=== PATIENT | male | born 1955 | race Caucasian/White ===

== ENCOUNTER → 2017-01-04 | Outpatient (CLI) | payer BC ==
[~2017-01-04] MED LIST: ACET-1311 PO
== END | disposition home or self-care (01) ==
LOC: C.RDSM 12:09
PROVIDERS: ATTEND Family Medicine Sports Medicine
DX: M25.561 Pain in right knee (principal)

== ENCOUNTER → 2017-02-10 | Outpatient (CLI) | payer BC ==
--- NOTE | 2017-02-10 15:30 | DIAGNOSTIC IMAGING REPORT ---
RIGHT LOWER EXT JOINT WITHOUT CLINICAL HISTORY: M71.21 Right pain TECHNIQUE: Multiaxial MRI acquisition COMPARISON STUDY: None FINDINGS: Somewhat compromised exam due to moderate patient motion. Signal characteristics the osseous structures are unremarkable. No significant bone marrow replacing process. No significant popliteal cyst. Several venous varicosities. Evaluation of menisci shows a focal linear tear inferior surface posterior horn medial meniscus. Anterior horn is unremarkable. Lateral meniscus is within normal limits. Cruciate ligaments are intact. Mild degenerative thinning of the patellar articulating surface. The collateral ligaments are intact. IMPRESSION: 1. Focal linear tear posterior horn medial meniscus extending to the inferior meniscal surface. 2. Minimal degenerative changes of the articular services of all major joint compartments. 3. Study is otherwise unremarkable. The above report was generated using voice recognition software. It may contain grammatical, syntax or spelling errors. Electronically signed by: Torsten Tracy M.D. 02/10/2017 3:29 PM Dictated Date/Time: 02/10/2017 3:24 PM
== END | disposition home or self-care (01) ==
LOC: C.MRI 13:59
PROVIDERS: ATTEND Family Medicine Sports Medicine
DX: M71.21 Synovial cyst of popliteal space [Baker], right knee (principal); S83.241A Other tear of medial meniscus, current injury, right knee, initial encounter; M89.8X6 Other specified disorders of bone, lower leg; X58.XXXA Exposure to other specified factors, initial encounter

== ENCOUNTER → 2017-02-17 | Outpatient (CLI) | payer BC | END | disposition home or self-care (01) | LOC: C.RDSM 10:50 | PROVIDERS: ATTEND Orthopaedic Surgery | DX: M25.561 Pain in right knee (principal) ==

== ENCOUNTER → 2017-02-22 | Outpatient (CLI) | payer BC ==
--- NOTE | 2017-02-22 08:33 | DIAGNOSTIC IMAGING REPORT ---
CT SCAN OF THE CHEST WITHOUT IV CONTRAST CLINICAL HISTORY: Follow-up pulmonary nodules. COMPARISON STUDY: Chest CT scans dated 02/26/2016 and 09/10/2015. TECHNIQUE: CT scan of the thorax was performed from the thoracic inlet to the upper abdomen. Images are reviewed in the axial, sagittal, and coronal planes. IV contrast was not administered for this examination as per the referring clinician. A dose lowering technique was utilized adhering to the principles of ALARA. CT DOSE: 342.20 mGycm FINDINGS: Thyroid: Imaged portions of the thyroid gland are normal in size and attenuation. Thoracic aorta: The thoracic aorta is normal in caliber and demonstrates standard 3-vessel arch anatomy. Heart: The heart is normal in size and without pericardial effusion. Lungs and pleural spaces: There is a tiny fat-containing Bochdalek hernia at the right lung base. No airspace consolidation or pleural effusion is identified the trachea and central airways are clear. There is a 7 mm right lower lobe nodule seen on axial image #211. A 5 mm left upper lobe nodule is seen image #156. These are unchanged from 09/10/2015. No new pulmonary nodules are identified. Mediastinum: There is no mediastinal lymphadenopathy. Sara: Not well assessed without IV contrast. Axillae: There is no axillary lymphadenopathy. Upper abdomen: There is a 1.4 cm cyst in the left hepatic lobe. A tiny hiatal hernia is identified.. Skeletal structures: A benign-appearing lucent lesion in the right posterior seventh rib measuring 1.8 cm is unchanged from prior studies. No lytic or blastic bony lesions are seen. IMPRESSION: 1. There is no airspace consolidation or pleural effusion. 2. Unchanged appearance of 2 pathologically indeterminant pulmonary nodules measuring up to 7 mm dating back to 09/10/2015. No new pulmonary nodule is identified. Continued follow-up is recommended. See below. Please refer to below summary of Fleischner criteria recommendations for follow-up of incidental CT nodules (Aleida Motley, Guidelines for management of small pulmonary nodules detected on CT scans: A statement from the Fleischner Society, Radiology 237: [phone].) SOLID NODULES Solitary nodule size: <6 mm * low risk patients: no follow-up needed * high risk patients: optional CT at 12 months Solitary nodule size: 6-8 mm * low risk patients: follow-up at 6-12 months, then consider further follow-up at 18-24 months * high risk patients: initial follow-up CT at 6-12 months and then at 18-24 months if no change Solitary nodule size: >8 mm * either low or high risk patients - consider follow-up CT at 3 months, and/or CT-PET, and/or biopsy Multiple nodules size: <6 mm * low risk patients: no routine follow-up * high risk patients: optional CT at 12 months Multiple nodules size: 6-8 mm * low risk patients: follow-up at 3-6 months, then consider further follow-up at 18-24 months * high risk patients: follow-up at 3-6 months, then at 18-24 months if no change Multiple nodules size: >8 mm * low risk patients: follow-up at 3-6 months, then consider further follow-up at 18-24 months * high risk patients: follow-up at 3-6 months, then at 18-24 months if no change Note: newly detected indeterminate nodule in persons 35 years of age or older. * low risk patients: minimal or absent history of smoking and/or other known risk factors * high risk patients: history of smoking or of other known risk factors (e.g. first degree relative with lung cancer, or exposure to asbestos, radon, uranium) * if a nodule up to 8 mm is partly solid or is ground glass further follow-up is required after 24 months to exclude possible slow growing adenocarcinoma (QUENTIN) SUBSOLID NODULES Solitary pure ground-glass nodule * nodule size <6 mm - no CT follow-up required * nodule size >=6 mm - follow-up CT at 6-12 months, then every 2 years until 5 years Solitary part-solid nodule * nodule size <6 mm - no CT follow-up required * nodule size >=6 mm - follow-up CT at 3-6 months. If unchanged, and solid component remains <6 mm, then annual follow-up for 5 years Multiple subsolid nodules * nodule size <6 mm - follow-up CT at 3-6 months, consider further follow-up at 2 and 4 years if stable * nodule size >=6 mm - follow-up CT at 3-6 months, subsequent management based on the most suspicious nodule(s) Electronically signed by: Armando Angel M.D. 02/22/2017 8:31 AM Dictated Date/Time: 02/22/2017 8:21 AM
== END | disposition home or self-care (01) ==
LOC: C.CTS 08:03
PROVIDERS: ATTEND Physician Assistant
DX: R05 Cough (principal); R91.8 Other nonspecific abnormal finding of lung field

== ENCOUNTER 2017-03-22 19:06 | Emergency (ER) | payer BC ==
[~2017-03-22] VITALS: Ht 177.8 cm; Wt 93.0 kg
[~2017-03-22 19:06] MED LIST changes: -ATROPINE SULFATE 0.1 MG/ML 5ML SYR IV PRN; -CEFAZOLIN 2000MG IV PUSH 10 ML IV SCH; -DEXAMETHASONE SOD INJ 4 MG/ML VIAL ONE; -EpHEDrine SULFATE INJ 50 MG/ML AMP IV PRN; -EpHEDrine SULFATE INJ 50 MG/ML AMP ONE; -EpINEphrine HCL INJ 1 MG/ML 5ML SYRINGE ONE; -FENTANYL CITRATE INJ 50 MCG/1 ML 2 ML VIAL ONE; -IBUP-1451 PO; -KETOROLAC TROMETHAMINE 30 MG/ML VIAL ONE; -LIDO 2%/EPINEPHRINE 1:100000 20 ML VIAL INFIL ONE; -LIDOCAINE HCL 2% 2 ML VIAL (20MG/ML) ONE; -MIDAZOLAM HCL 1 MG/ML 2ML VIAL ONE; -MoRPHine SULFATE 2 MG/ML CARP IV PRN; -MoRPHine SULFATE 4 MG/ML 1 ML CARP\\VIAL IV PRN; -ONDANSETRON INJ 2 MG/ML 2 ML VIAL IV PRN; -ONDANSETRON INJ 2 MG/ML 2 ML VIAL ONE; -OXYCODONE/ACETAMINOPHEN 5-325 TAB PO PRN; -PROMETHAZINE HCL INJ 6.25 MG in SODIUM CHLORIDE 0.9% 50ML 50 ML IV PRN; -PROPOFOL IV EMULSION 10 MG/ML 20 ML VIAL IV ONE; -ROPIVACAINE 0.5% 5 MG/ML 30 ML VIAL ONE; -SODIUM CHLORIDE 0.9% 1000ML 1,000 ML IV SCH
[2017-03-22 19:11] VITALS: TEMP 36.9; Ht 177.8 cm; Wt 93.0 kg
[2017-03-22] MEDS ORDERED: SODIUM CHLORIDE 0.9% 1000ML 1,000 ML IV STA (19:22)
[2017-03-22] MEDS ORDERED: KETOROLAC TROMETHAMINE 30 MG/ML VIAL IV STA (19:22)
--- NOTE | 2017-03-22 19:31 | EMERGENCY ROOM VISIT NOTE ---
History Report prepared by Nydiaibkyler: Katelin Ring Under the Supervision of: Dr. Cain Leon M.D. First contact with patient: 19:07 Chief Complaint: HYPERTENSION Stated Complaint: HTN History of Present Illness The patient is a 61 year old male who presents to the Emergency Room with complaints of worsening hypertension that started 3 hours ago. He notes that he had surgery on his meniscus this morning. He states when he went in for a pre- assessment for his surgery, his doctor noticed his blood pressure was higher than normal. The patient states that he started to feel "odd" 3 hours ago and decided to check his BP. That is when he noticed his blood pressure was higher than it has ever been. He notes when he took his BP the first time it was 170/ 110. He states that he took it again and it was 180/115 which was alarming to him. The patient notes he has been experiencing chest pain near his right collarbone that lasted 1 minute. The patient denies having shortness of breath, nausea, vomiting, chills, or fever. He notes that his father from a heart attack at 59 y/o. The patient notes that since his meniscus surgery, he has been moving around fairly well. Source of History: patient Onset: 3 hours ago Position: other (HBP) Quality: other (HBP) Associated Symptoms: + chest pain, No fevers, No chills, No SOB, No nausea, No vomiting Review of Systems See HPI for pertinent positives and negatives. A total of ten systems were reviewed and were otherwise negative. Family History No pertinent family history Social History Smoking Status: Former Smoker Smokeless Tobacco Use: No Alcohol Use: occasionally Drug Use: none Current/Historical Medications Scheduled PRN Alprazolam (Xanax), 0.5 MG PO DAILY PRN for when flying Ibuprofen Tab (Motrin), 800 MG PO Q8H PRN for Pain Allergies Coded Allergies: No Known Allergies (Unverified , 03/22/17) Physical Exam Vital Signs Date Time Temp Pulse Resp B/P (MAP) Pulse Ox O2 Delivery O2 Flow Rate FiO2 03/22/17 22:25 80 18 141/87 100 03/22/17 21:39 82 18 140/90 100 Room Air 03/22/17 20:22 82 18 141/97 100 Room Air 03/22/17 19:30 Room Air 03/22/17 19:26 101 03/22/17 19:11 36.9 109 18 172/102 100 Room Air Physical Exam GENERAL: Awake, alert, well-appearing, in no distress HENT: Normocephalic, atraumatic. Oropharynx unremarkable. Dry mucus membranes. EYES: Normal conjunctiva. Sclera non-icteric. NECK: Supple. No nuchal rigidity. FROM. No JVD. RESPIRATORY: Clear to auscultation. CARDIAC: Sinus tachycardia. Extremities warm and well perfused. Pulses equal. ABDOMEN: Soft, non-distended. No tenderness to palpation. No rebound or guarding. No masses. RECTAL: Deferred. MUSCULOSKELETAL: Mild reproducible tenderness to right anterior chest wall. The back is symmetrical on inspection without obvious abnormality. There is no CVA tenderness to palpation. No joint edema. LOWER EXTREMITIES: Right knee wrapped with yoan wrap, no edema or tenderness. NEURO: Normal sensorium. No sensory or motor deficits noted. SKIN: No rash or jaundice noted. Medical Decision & Procedures ER Provider Diagnostic Interpretation: Radiology results as stated below per my review and radiologist interpretation: CHEST ONE VIEW PORTABLE CLINICAL HISTORY: Chest pain. Hypertension. COMPARISON STUDY: Chest CT February 22, 2017. FINDINGS: Lung volumes are normal. No pneumothorax or pleural effusion is present. There is no consolidation or evidence of pulmonary edema. A 6 mm right lower lobe pulmonary nodule is unchanged since exam of August 23, 2015. IMPRESSION: 1. No acute cardiopulmonary findings. 2. No change in a 6 mm right lower lobe nodule since exam of August 23, 2015. Electronically signed by: Bobby Grider M.D. 03/22/2017 7:58 PM Dictated Date/Time: 03/22/2017 7:57 PM Laboratory Results 03/22/17 19:28 Red Blood Count 4.65, Mean Corpuscular Volume 90.5, Mean Corpuscular Hemoglobin 32.9, Mean Corpuscular Hemoglobin Concent 36.3, Mean Platelet Volume 9.6, Neutrophils (%) (Auto) 84.8, Lymphocytes (%) (Auto) 7.9, Monocytes (%) (Auto) 7.1, Eosinophils (%) (Auto) 0.0, Basophils (%) (Auto) 0.0, Neutrophils # (Auto) 5.13, Lymphocytes # (Auto) 0.48, Monocytes # (Auto) 0.43, Eosinophils # (Auto) 0.00, Basophils # (Auto) 0.00 03/22/17 19:28 Test 03/22/17 19:28 03/22/17 21:15 White Blood Count 6.05 K/uL (4.8-10.8) Red Blood Count 4.65 M/uL (4.7-6.1) Hemoglobin 15.3 g/dL (14.0-18.0) Hematocrit 42.1 % (42-52) Mean Corpuscular Volume 90.5 fL (80-100) Mean Corpuscular Hemoglobin 32.9 pg (25-34) Mean Corpuscular Hemoglobin Concent 36.3 g/dl (32-36) Platelet Count 189 K/uL (130-400) Mean Platelet Volume 9.6 fL (7.4-10.4) Neutrophils (%) (Auto) 84.8 % Lymphocytes (%) (Auto) 7.9 % Monocytes (%) (Auto) 7.1 % Eosinophils (%) (Auto) 0.0 % Basophils (%) (Auto) 0.0 % Neutrophils # (Auto) 5.13 K/uL (1.4-6.5) Lymphocytes # (Auto) 0.48 K/uL (1.2-3.4) Monocytes # (Auto) 0.43 K/uL (0.11-0.59) Eosinophils # (Auto) 0.00 K/uL (0-0.5) Basophils # (Auto) 0.00 K/uL (0-0.2) RDW Standard Deviation 38.0 fL (36.4-46.3) RDW Coefficient of Variation 11.6 % (11.5-14.5) Immature Granulocyte % (Auto) 0.2 % Immature Granulocyte # (Auto) 0.01 K/uL (0.00-0.02) Anion Gap 7.0 mmol/L (3-11) Est Creatinine Clear Calc Drug Dose 101.0 ml/min Estimated GFR () 107.5 Estimated GFR (Non- 92.7 BUN/Creatinine Ratio 15.6 (10-20) Calcium Level 8.8 mg/dl (8.5-10.1) Total Bilirubin 1.5 mg/dl (0.2-1) Direct Bilirubin 0.3 mg/dl (0-0.2) Aspartate Amino Transf (AST/SGOT) 16 U/L (15-37) Alanine Aminotransferase (ALT/SGPT) 14 U/L (12-78) Alkaline Phosphatase 35 U/L (45-117) Total Protein 7.6 gm/dl (6.4-8.2) Albumin 3.8 gm/dl (3.4-5.0) Lipase 151 U/L (73-393) Troponin I < 0.015 ng/ml (0-0.045) Laboratory results reviewed by me Medications Administered Medications (Trade) Dose Ordered Sig/Andres Route Start Time Stop Time Status Last Admin Dose Admin Sodium Chloride 1,000 ml @ 999 mls/hr Q1H1M STAT IV 03/22/17 19:22 03/22/17 20:22 DC 03/22/17 19:34 999 MLS/HR Ketorolac Tromethamine (Toradol Inj) 30 mg NOW STAT IV 03/22/17 19:22 03/22/17 19:24 DC 03/22/17 19:34 30 MG ECG Indication: other (hypertension) Rate (beats per minute): 101 Rhythm: sinus tachycardia Findings: 1st degree AV block, LAFB, no acute ischemic change, left axis deviation Change: no significant change ED Course 1906: The patient was evaluated in room C7. A complete history and physical exam was performed. 1921: Toradol Inj 30 mg IV, Sodium Chloride 1000 ml @ 999 mls/hr IV. 2244: I reevaluated the patient. Discussed results and discharge instructions: He verbalized understanding and agreement. The patient is ready for discharge. Medical Decision I reviewed the patient's past medical history, medications, and the nursing notes as described above. Differential diagnosis includes but is not limited to: musculoskeletal strain / costochondritis, ACS, PNA, bronchitis, PE. The patient is a 61-year-old gentleman who presents to emergency department with a single episode of right chest wall pain that lasted 1 minute around 4 PM in the setting of having elevated blood pressures over the past month as well as having meniscus surgery this morning. History of present illness. Arrival patient is well-appearing, afebrile, hypertensive with systolic to 170s but otherwise stable. He has reproducible pain with palpation to the right anterior chest wall. Father was a chronic smoker and had a [facility] in his 40s. Otherwise patient has no other risk factors. EKG unremarkable. Trop negative x 2, Heart score 2, low risk. Likely msk given reproducibility. Findings and plan for follow-up reviewed with patient. Patient agreeable and d/c'd per discharge instructions. Medication Reconcilliation Current Medication List: was personally reviewed by me Blood Pressure Screening Patient's blood pressure: Elevated blood pressure Blood pressure disposition: Elevated BP felt to be situational Impression Primary Impression: Chest wall pain Scribe Attestation The scribe's documentation has been prepared under my direction and personally reviewed by me in its entirety. I confirm that the note above accurately reflects all work, treatment, procedures, and medical decision making performed by me. Departure Information Dispostion Home / Self-Care Prescriptions Ibuprofen Tab (MOTRIN) 800 Mg Tab 800 MG PO Q8H Y for Pain for 7 Days, #21 TAB Prov: Cain Leon M.D. 03/22/17 Referrals Tk Campos M.D. (PCP) Patient Instructions Chest Pain - [facility], ED Chest Pain Costochondritis, [facility] Additional Instructions Please follow up with your primary care physician in the next 1-3 days for re- evaluation. Your chest pain is most likely due to muscular strain. Otherwise, your exam, EKG, chest xray, and lab results did not show signs of an emergent condition at this time. Ibuprofen for pain as needed. Return to the emergency department for worsening symptoms as described in the accompanying instructions.
[2017-03-22 19:59] LABS: COMPLETE YES; HEMATOCRIT 42.1 % (42-52); IG% 0.2 %; LYMPH % 7.9 %; LYMPH ABS # 0.48 K/uL (1.2-3.4); MEAN CELL VOLUME 90.5 fL (80-100); MEAN CORPUSCULAR HEMOGLOBIN 32.9 pg (25-34); MEAN CORPUSCULAR HGB CONC 36.3 g/dl (32-36); MEAN PLATELET VOLUME 9.6 fL (7.4-10.4); MONO % 7.1 %; NEUT % 84.8 %; PLATELET COUNT 189 K/uL (130-400); RED BLOOD COUNT 4.65 M/uL (4.7-6.1); WHITE BLOOD COUNT 6.05 K/uL (4.8-10.8)
--- NOTE | 2017-03-22 19:59 | DIAGNOSTIC IMAGING REPORT ---
CHEST ONE VIEW PORTABLE CLINICAL HISTORY: Chest pain. Hypertension. COMPARISON STUDY: Chest CT February 22, 2017. FINDINGS: Lung volumes are normal. No pneumothorax or pleural effusion is present. There is no consolidation or evidence of pulmonary edema. A 6 mm right lower lobe pulmonary nodule is unchanged since exam of August 23, 2015. IMPRESSION: 1. No acute cardiopulmonary findings. 2. No change in a 6 mm right lower lobe nodule since exam of August 23, 2015. Electronically signed by: Bobby Grider M.D. 03/22/2017 7:58 PM Dictated Date/Time: 03/22/2017 7:57 PM
[2017-03-22 20:18] LABS: ALT/SGPT 14 U/L (12-78); AST/SGOT 16 U/L (15-37); BLOOD UREA NITROGEN 14 mg/dl (7-18); BUN/CREATININE RATIO 15.6 (10-20); CALCIUM 8.8 mg/dl (8.5-10.1); CARBON DIOXIDE 25 mmol/L (21-32); CHLORIDE 105 mmol/L (98-107); CREATININE 0.88 mg/dl (0.60-1.40); GLUCOSE 148 mg/dl (70-99); POTASSIUM 3.9 mmol/L (3.5-5.1); SODIUM 137 mmol/L (136-145)
[2017-03-22 20:23] LABS: ALKALINE PHOSPHATASE 35 U/L (45-117)
[2017-03-22] MEDS ORDERED: IBUP-1451 PO (22:18)
[2017-03-22 22:25] VITALS: BP 141/87; PULSE 80; O2SAT 100
== END 2017-03-22 22:26 | disposition home or self-care (01) ==
LOC: EDBD 19:06 → C.EDC 19:07
DX: R07.89 Other chest pain (principal); Z98.890 Other specified postprocedural states; Z87.891 Personal history of nicotine dependence

== ENCOUNTER → 2017-03-22 | Day surgery (SDC) | payer BC ==
[2017-03-09 07:34] VITALS: Ht 177.8 cm; Wt 81.8 kg
[~2017-03-22] VITALS: Ht 177.8 cm; Wt 81.8 kg
[~2017-03-22] MED LIST changes: -ACET-1311 PO; +ALPR-411 PO; +ATROPINE SULFATE 0.1 MG/ML 5ML SYR IV PRN; +CEFAZOLIN 2000MG IV PUSH 10 ML IV SCH; +DEXAMETHASONE SOD INJ 4 MG/ML VIAL ONE; +EpHEDrine SULFATE INJ 50 MG/ML AMP IV PRN; +EpHEDrine SULFATE INJ 50 MG/ML AMP ONE; +EpINEphrine HCL INJ 1 MG/ML 5ML SYRINGE ONE; +FENTANYL CITRATE INJ 50 MCG/1 ML 2 ML VIAL ONE; +IBUP-1451 PO; +KETOROLAC TROMETHAMINE 30 MG/ML VIAL ONE; +LIDO 2%/EPINEPHRINE 1:100000 20 ML VIAL INFIL ONE; +LIDOCAINE HCL 2% 2 ML VIAL (20MG/ML) ONE; +MIDAZOLAM HCL 1 MG/ML 2ML VIAL ONE; +MoRPHine SULFATE 2 MG/ML CARP IV PRN; +MoRPHine SULFATE 4 MG/ML 1 ML CARP\\VIAL IV PRN; +ONDANSETRON INJ 2 MG/ML 2 ML VIAL IV PRN; +ONDANSETRON INJ 2 MG/ML 2 ML VIAL ONE; +OXYCODONE/ACETAMINOPHEN 5-325 TAB PO PRN; +PROMETHAZINE HCL INJ 6.25 MG in SODIUM CHLORIDE 0.9% 50ML 50 ML IV PRN; +PROPOFOL IV EMULSION 10 MG/ML 20 ML VIAL IV ONE; +ROPIVACAINE 0.5% 5 MG/ML 30 ML VIAL ONE; +SODIUM CHLORIDE 0.9% 1000ML 1,000 ML IV SCH
--- NOTE | 2017-03-22 06:46 | History & Physical Bridge - SC ---
H&P Re-Evaluation Bridge Note: I have examined the patient, reviewed the History & Physical and in the interval since the performance of the History & Physical I have noted the following changes of clinical significance: No changes noted. His Miranda's cyst remains small and barely palpable, so we will proceed with the right knee scope , partial medial meniscectomy, but will not perform an aspiration. Patient agrees with this plan.
[2017-03-22] MEDS: LACTATED RINGER'S 1000ML 1,000 ML IV SCH ×2 (07:00→09:17)
--- NOTE | 2017-03-22 08:13 | [facility] Post Operative Brief Note ---
Immediate Operative Summary Operative Date Mar 22, 2017. Pre-Operative Diagnosis Right Knee Medial Meniscal Tear; Bakers Cyst Post-Operative Diagnosis Same Procedure(s) Performed Right Knee Partial Medial Meniscectomy, Chondroplasty of the Medial Femoral Condyle and Trochlea Surgeon Dr. Garcia Clinician Oncology Surgeon(s) Oumou No PA-C Estimated Blood Loss 3 ml Findings Grade 4 chondromalacia of trochlea, Grade 3 chondromalacia medial femoral condyle, patella and lateral tibial plateau, Grade 2 chodromalacia of medial tibial plateau. Degenerative, complex tear of medial meniscus posterior horn debrided to stable base. Fluids (cc crystalloids) 800 Specimens None Drains None Anesthesia General with local Complication(s) None Disposition Recovery Room / PACU
--- NOTE | 2017-03-22 08:18 | [facility] Operative Report ---
Operative Report Operative Date Mar 22, 2017. Pre-Operative Diagnosis Right Knee Medial Meniscal Tear; Bakers Cyst Post-Operative Diagnosis Same Procedure(s) Performed Right Knee Partial Medial Meniscectomy, Chondroplasty of the Medial Femoral Condyle and Trochlea Surgeon Dr. Garcia Supervisor Paper Testing Surgeon(s) Oumou No PA-C Estimated Blood Loss 3 ml Findings none Fluids (cc crystalloids) 800 Specimens None Complication(s) None Disposition Recovery Room / PACU I attest to the content of the Intraoperative Record and any orders documented therein. Any exceptions are noted below.
--- NOTE | 2017-03-22 08:27 | Discharge Instructions ---
Discharge Instructions Date of Service Mar 22, 2017. Admission Reason for Admission: Isha;Ll Discharge Discharge Diagnosis / Problem: Rt knee partial medial meniscectomy; Trochlear/ Medial Femoral chondroplasty Discharge Goals Goal(s): Decrease discomfort, Improve function, Increase independence Activity Recommendations Activity Limitations: as noted below Lifting Limitations: until after follow-up appointment Exercise/Sports Limitations: none May Resume Sexual Activity: when tolerated Shower/Bathe: tomorrow, keep incision dry Driving or Machine Use: After follow 2 wk f/u Weightbearing Status: Right weightbearing (as tolerated) . Instructions / Follow-Up Instructions / Follow-Up Post-operative Instructions Dear Patient and Family/Friends, Before you are discharged from the hospital, it is important to know what to expect when you get home after surgery. To that end, we have created this sheet of discharge instructions which covers many commonly asked questions. Make sure you go through this sheet in its entirety with your nurse before you are discharged. Please note that we will go over the specifics of your surgery and recovery when you return for your first post-operative visit. Sincerely, Dr. Garcia Pain Expect to be in a fair amount of pain after surgery. Remember, our goal is not to eliminate your pain, but to make it tolerable. It is a good idea to stay ahead of your pain by taking the medications you were prescribed once you get home. Typically, the pain starts improving 3-7 days after surgery. You should start weaning off the narcotic pain medication (oxycodone, hydrocodone, hydromorphone, morphine) as soon as your pain improves. Please call our office if your pain is not adequately controlled. Ice Ice your operative site at least 5 times a day for 15-30 minutes at a time. Make sure you have a thin cloth between the ice or cooling unit and your skin to prevent ramos bite. This is especially important if you received a nerve block. Continue icing your operative site for the first 5-7 days after surgery , then as needed. Diet/Nausea/Vomiting Start by drinking clear liquids and eating crackers. If you can tolerate this, then you may resume your normal diet. If you feel nauseated or vomit, take Zofran/ondansetron (if prescribed). Please call our office if you have intractable nausea or vomiting, or, if after hours, you may go to the Emergency Room for help. Constipation Constipation is a common side effect of narcotic pain medication. If you have not had a bowel movement within 2 days after surgery, we recommend purchasing an over the counter laxative such as Milk of Magnesia, Dulcolax, or Miralax from a local pharmacy, and taking it as instructed. Call our clinic if any questions. Slings and Braces If you were placed in a sling or brace, it must be worn at all times, including sleep. You may remove your sling or brace for physical therapy, home exercises , and showering. The length of time you will be in your brace and range of motion restrictions depends on what surgery you had; these details will be reviewed at your first post-operative appointment. Nerve block The anesthesia team sometimes places a nerve block to help with post-operative pain control. This results in significant numbness and inability to move the extremity. The nerve block usually wears off in 8-12 hours, but sometimes can last up to 24 hours. Please call our office if you are still unable to move your extremity after 24 hours, unless you received a pain pump to take home. Nerve blocks typically wear off quickly, so start taking pain medication as soon as you start feeling soreness near your surgical site. Weight bearing and Range of Motion. Do not bear any weight through your operative extremity immediately after surgery. If you had upper extremity surgery, do not lift anything with that arm. If you are in a knee brace, keep it locked in place until your follow-up. We will discuss your weight bearing, range of motion, and lifting restrictions in detail at your first post-operative appointment. Continuous Passive Motion (CPM) Machine If you were prescribed a CPM machine, it will start after your first post- operative appointment, at which time we will give you instructions on the range of motion settings and duration of treatment Physical therapy You will be given a prescription for physical therapy or occupational therapy at your first post-operative appointment. Typically, patients start therapy within 1 week of surgery Wound care and showering We will inspect your wound at your first post-operative visit, and may do a dressing change at that time. Most patients will be in a water-proof dressing that is removed 14 days after surgery. It is normal to see some dried blood on the dressing. Do not remove your dressing, paper strips or sutures yourself unless you are given permission. Showering is allowed the day after surgery. Do not scrub or remove any dressings. The wound should not be submerged underwater (i.e. in a bathtub or pool) until 4 weeks after surgery SUZY stockings If you were given white stockings, these are to be worn at all times except to shower (on both legs) for the first 2 weeks after surgery. Driving You may not drive while taking narcotic pain medication or while in a cast, splint, sling or brace. You, the patient, need to make the final determination about when you are safe to drive, however, the earliest you may consider driving after surgery is below: Hand/Wrist/Elbow Surgery: 3 days Shoulder Surgery: 2 weeks Hip,/Knee/Ankle Surgery: 4 weeks Fracture repair: 6 weeks Return to Work Your return to work depends on what surgery was done and what type of work you do. Please bring any paperwork your employer needs completed to your first post -operative visit. Also, bring a description of your job duties, as this helps us to understand what risks you may face at work. Travel Avoid long distance travel (greater than 1 hour) in airplanes and cars for the first 6 weeks after surgery. If you must travel, you need to have a Doppler ultrasound done before you travel to rule out a blood clot in your legs. Follow-up You should have a follow-up appointment already scheduled 1-2 days after surgery. If not, please contact our office to make this appointment before you leave the hospital. When to call the office It is normal to have swelling and bruising in the limb that was operated on. This will improve with time. It is also normal to have fevers for the first 2 days after surgery. Reasons you should call your doctor include: Uncontrolled pain; Nausea, vomiting, or constipation that does not improve with medication; Fevers over 101.5, chills, sweats; Drainage or bleeding from the wound; Foul odor; Spreading areas of redness; Any other concerns Current Hospital Diet Patient's current hospital diet: Discharge Diet Recommended Diet: Regular Diet Procedures Procedures Performed: Right Knee Partial Medial Meniscectomy, Chondroplasty of the Medial Femoral Condyle and Trochlea Pending Studies Studies pending at discharge: no Medical Emergencies . Who to Call and When: Medical Emergencies: If at any time you feel your situation is an emergency, please call 911 immediately. . Non-Emergent Contact Non-Emergency issues call your: Primary Care Provider Call Non-Emergent contact if: you have a fever, temperature is above 101.5, your pain is not controlled, wound has increased drainage, wound has increased redness, you have any medication questions . "Provider Documentation" section prepared by Raul No. . VTE Core Measure Inpt VTE Proph given/why not?: Other Anticoagulation (EC Aspirin 81 mg), Priyanka Gomez [place] Drug Monitoring Program Search Results: patient reviewed within database, no issues identified, see additional documentation
[2017-03-22] MEDS: FENTANYL CITRATE INJ 50 MCG/1 ML 2 ML VIAL IV PRN ×2 (08:42→08:51)
--- NOTE | 2017-03-22 08:49 | OPERATIVE REPORT ---
DATE OF OPERATION: 03/22/2017 PREOPERATIVE DIAGNOSIS: Right knee medial meniscus tear. POSTOPERATIVE DIAGNOSES: 1. Same. 2. 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 3. Medial and lateral synovitis. OPERATIONS PERFORMED: 1. Right knee arthroscopy and partial medial meniscectomy. 2. Decompression of right knee miranda's cyst. 3. Right knee chondroplasty. 4. Right knee major synovectomy of 2 compartments. SURGEON: Skip Garcia MD MANAGER [employer] SALES: Oumou No. IV FLUIDS: 800 mL crystalloid. ESTIMATED BLOOD LOSS: 3 mL. IMPLANTS: None. COMPLICATIONS: None. ANESTHESIA: General with local. INDICATIONS: Mr. Barrios is a 61-year-old gentleman who has had pain in his right knee that has been refractory to conservative management. He has had a previous knee arthroscopy in his left knee with a good result back in 2012. Exam consistent with a medial meniscus tear with positive Julio's test referable the posterior medial knee. MRI shows a complex tear of the posterior horn of the medial meniscus. I had a long discussion with him about the risks and benefits of surgery and alternatives to surgery and expected outcomes. After reviewing all these, he elected to proceed with surgery. All questions were answered. Informed consent was signed. OPERATIVE FINDINGS: 1. The undersurface of the patella showed grade 3 chondromalacia 15 mm in diameter. The trochlea showed grade 4 chondromalacia measuring 8 x 10 mm. 2. The medial and lateral gutters were free of any loose bodies. 3. The anterior compartment showed synovitis extending from the medial into the lateral compartment. 4. The ACL and the PCL were intact. 5. Medial compartment showed a complex tear of the posterior horn, extending into the body. The medial femoral condyle showed grade 3 chondromalacia measuring 12 x 20 mm. There was grade 2 chondromalacia of the posteromedial tibial plateau. 6. The lateral compartment showed some fraying of the free edge of the lateral meniscus and a grade 3 chondromalacia diffusely over the lateral tibial plateau. Grade 1 chondromalacia of the entirety of the lateral femoral condyle. DESCRIPTION OF THE OPERATION: The patient was identified in the preoperative holding area, where his surgical site was marked. He was brought back to main operating room, where he was placed on the operating room table and general anesthesia was administered. All bony prominences were padded. Perioperative antibiotics were administered. He was prepped and draped in the normal sterile fashion. Prior to incision, a multidisciplinary timeout was called. All in the room were in agreement. We began by injecting his portal sites with 10 mL of 1% lidocaine with epinephrine. A lateral portal was created followed by a medial portal under direct visualization. A diagnostic arthroscopy was then performed, revealing the above findings. Next, using combination of meniscal biters and shaver, the posterior horn of the medial meniscus was trimmed back to a stable margin. The undersurface of the meniscus communicated with his Miranda cyst and cyst contents could be seen extruding back into the knee. We pushed on the cyst in the back of the knee to try to remove as much fluid as possible. Next, a gentle chondroplasty was performed of the medial femoral condyle to remove an unstable flap with biters and the shaver. We then used a cautery to perform a synovectomy of the medial, anterior and lateral compartments of the knee, where there was synovitis overhang in the medial meniscus and onto the intermeniscal ligament and anterolateral knee. Next, the leg was placed in the [id number] position. We gently performed a trimming of the free edge of the lateral meniscus. We then moved into the suprapatellar pouch. The undersurface of the patella was gently shaved with a shaver. The trochlea had an unstable flap that was debrided with meniscal biter and shaver. Final arthroscopic images were then obtained. The portals were closed with 3-0 Monocryl in an inverted fashion. Steri-Strips were applied. 30 mL total of ropivacaine was injected with 10 mL into the actual knee joint. A 2 x 2s and Tegaderms were placed. The patient was awoken from anesthesia and transferred to recovery room in stable condition. POSTOPERATIVE COURSE: The patient will return tomorrow for physical therapy. He will follow the partial medial meniscectomy/knee debridement physical therapy protocol. He is full weightbearing with crutches as needed. He is on aspirin for DVT prophylaxis. I attest to the content of the Intraoperative Record and any orders documented therein. Any exceptions are noted below. DENILSON
[2017-03-22 09:25] VITALS: TEMP 36.7
[2017-03-22 10:11] VITALS: BP 153/88; PULSE 78; O2SAT 97
--- NOTE | 2017-03-22 10:13 | Anesthesia Progress Nt - [facility] ---
Anesthesia Post Op Note Date & Time Mar 22, 2017 at 10:12 Vital Signs Pain Intensity: 3 Vital Signs Past 12 Hours Date Time Temp Pulse Resp B/P (MAP) Pulse Ox O2 Delivery O2 Flow Rate FiO2 03/22/17 10:11 78 16 153/88 (109) 97 Room Air 03/22/17 09:25 36.7 74 18 146/85 (105) 97 Room Air 03/22/17 09:22 80 18 95 03/22/17 09:22 80 18 03/22/17 09:21 138/85 03/22/17 09:17 70 16 03/22/17 09:17 70 16 98 03/22/17 09:16 139/83 03/22/17 09:12 79 24 97 03/22/17 09:12 78 24 03/22/17 09:11 148/86 03/22/17 09:07 81 26 97 03/22/17 09:07 79 26 03/22/17 09:06 149/97 03/22/17 09:05 73 18 03/22/17 09:05 70 18 97 03/22/17 09:01 36.9 76 20 149/97 97 Room Air 03/22/17 09:01 153/87 03/22/17 09:00 76 13 03/22/17 09:00 76 13 97 03/22/17 08:56 152/95 03/22/17 08:55 79 15 03/22/17 08:55 81 15 100 03/22/17 08:51 150/88 03/22/17 08:50 71 15 03/22/17 08:50 71 15 99 03/22/17 08:46 141/104 03/22/17 08:45 76 16 98 03/22/17 08:45 76 16 03/22/17 08:41 134/84 03/22/17 08:40 71 14 98 03/22/17 08:40 71 14 03/22/17 08:36 148/91 03/22/17 08:35 72 18 98 03/22/17 08:35 72 18 03/22/17 08:31 140/92 03/22/17 08:30 77 19 03/22/17 08:30 75 19 98 03/22/17 08:26 139/87 03/22/17 08:25 74 15 03/22/17 08:25 76 15 98 03/22/17 08:21 138/86 03/22/17 08:20 70 11 98 03/22/17 08:20 70 11 03/22/17 08:17 144/96 03/22/17 08:15 36.9 75 16 144/96 98 Mask 6 03/22/17 06:38 36.9 87 16 164/104 (124) 98 Room Air Notes Mental Status: alert / awake / arousable, participated in evaluation Pt Amnestic to Procedure: Yes Nausea / Vomiting: adequately controlled Pain: adequately controlled Airway Patency, RR, SpO2: stable & adequate BP & HR: stable & adequate Hydration State: stable & adequate Anesthetic Complications: no major complications apparent
== END | disposition home or self-care (01) ==
LOC: X.SURG 06:25
PROVIDERS: ATTEND Orthopaedic Surgery
DX: S83.241A Other tear of medial meniscus, current injury, right knee, initial encounter (principal); M71.21 Synovial cyst of popliteal space [Baker], right knee; M22.41 Chondromalacia patellae, right knee; M94.261 Chondromalacia, right knee; M65.861 Other synovitis and tenosynovitis, right lower leg; X58.XXXA Exposure to other specified factors, initial encounter; I10 Essential (primary) hypertension; F41.9 Anxiety disorder, unspecified; R91.1 Solitary pulmonary nodule; Z79.899 Other long term (current) drug therapy

== ENCOUNTER → 2017-04-30 | Outpatient (CLI) | payer BC | END | disposition home or self-care (01) | LOC: C.RDSM 13:15 | PROVIDERS: ATTEND Orthopaedic Surgery | DX: Z98.890 Other specified postprocedural states (principal) ==

== ENCOUNTER → 2017-04-30 | Outpatient (CLI) | payer BC ==
--- NOTE | 2017-04-30 11:45 | DIAGNOSTIC IMAGING REPORT ---
ULTRASOUND ABDOMEN COMPLETE CLINICAL HISTORY: Elevated serum bilirubin. COMPARISON STUDY: Chest CT dated 02/22/2017. TECHNIQUE: Real-time, grayscale, and color flow sonography of the abdomen was performed. Images are reviewed in the transverse and longitudinal planes. FINDINGS: Liver: The liver is top normal in size and homogeneous in echotexture. There is no intrahepatic biliary ductal dilatation. The main portal vein is patent. 1.5 cm cyst is incidentally noted in the left. Gallbladder: The gallbladder is normal in appearance. No gallstones are identified. There is no gallbladder wall thickening or pericholecystic fluid. A sonographic Catherine's sign is reportedly absent. The common bile duct measures up to 0.4 cm in diameter. Pancreas: Visualized portions of the pancreatic head and body are normal in appearance. Spleen: The spleen is normal in size and echotexture, measuring 10.4 cm in length. Kidneys: The kidneys are normal in size and echotexture. There is no hydronephrosis. The right kidney measures 11.2 cm in length and the left kidney measures 11.5 cm in length. No shadowing calculi are identified. Abdominal vasculature: Visualized portions of the abdominal aorta and IVC are normal as imaged. Ascites: None. IMPRESSION: Unremarkable sonographic assessment of the abdomen. Electronically signed by: Armando Angel M.D. 04/30/2017 11:44 AM Dictated Date/Time: 04/30/2017 11:42 AM
== END | disposition home or self-care (01) ==
LOC: C.ULTR 10:44
PROVIDERS: ATTEND Family Medicine
DX: I10 Essential (primary) hypertension (principal); R17 Unspecified jaundice

== ENCOUNTER → 2017-07-22 | Outpatient (CLI) | payer OTHER ==
--- NOTE | 2017-07-22 13:37 | DIAGNOSTIC IMAGING REPORT ---
CHEST 2 VIEWS ROUTINE CLINICAL HISTORY: R05 [id number] COMPARISON STUDY: 03/22/2017 FINDINGS: The cardiac and mediastinal contours are normal. There is no evidence of focal pulmonary consolidation. There is no evidence of failure. No pleural effusions are visualized.[ There is stable 5 mm rounded opacity at the right lung base, consistent with either a granuloma or nipple shadow. IMPRESSION: No active disease in the chest. Electronically signed by: Ladarius Black M.D. 07/22/2017 1:36 PM Dictated Date/Time: 07/22/2017 1:36 PM
== END | disposition home or self-care (01) ==
LOC: C.RAD1850 13:20
PROVIDERS: ATTEND Physician Assistant
DX: R05 Cough (principal)